=== PATIENT | male | born 1970 | race Caucasian/White ===

== ENCOUNTER 2019-02-02 22:50 | Emergency (ER) | payer BC ==
[2019-02-02] MEDS ORDERED: predniSONE 20 MG TAB PO STA (23:53)
--- NOTE | 2019-02-02 23:57 | ED ---
General Adult HPI - General Chief complaint: Neuro Symptoms/Deficit Stated complaint: Facial Numbness Time Seen by Provider: 02/02/19 23:04 Source: patient Mode of arrival: ambulatory Limitations: no limitations - History of Present Illness Initial comments: Patient is a 48-year-old man who presents to be evaluated for what he is concerned maybe strokelike symptoms. The patient states that starting yesterday in the evening he noticed that the right side of his face was feeling somewhat numb or heavy. He states that it also seemed like the right side of his mouth was somewhat drooping. He noticed that his eye was not closing as well. He states the symptoms were worse today and his girlfriend persuaded him to be seen here. Patient denies headache or any type of head injury. He denies any symptoms to the body. No trouble with speech or swallowing. Onset/Timin -: hour(s) Location: face Radiation: non-radiation Quality: dull Consistency: constant Improves with: none Worsens with: none Associated Symptoms: denies other symptoms Treatments Prior to Arrival: none - Related Data Previous Rx's Medication Instructions Recorded predniSONE 80 mg PO DAILY #7 tab 02/02/19 Allergies Allergy/AdvReac Type Severity Reaction Status Date / Time codeine Allergy Hallucinati Verified 02/02/19 23:28 ons Review of Systems ROS Statement: Those systems with pertinent positive or pertinent negative responses have been documented in the HPI. ROS Other: All systems not noted in ROS Statement are negative. Constitutional: Denies: fever, chills, weakness Eyes: Reports: other (Eyelid weakness). Denies: eye pain, eye discharge, vision change ENT: Denies: ear pain, throat pain, hearing loss Respiratory: Denies: cough, dyspnea Cardiovascular: Denies: chest pain, syncope Gastrointestinal: Denies: abdominal pain, nausea, vomiting Genitourinary: Denies: dysuria, hematuria Musculoskeletal: Denies: back pain Skin: Denies: rash Neurological: Reports: weakness (Right facial), numbness (Right facial). Denies: headache, paresthesias Past Medical History Past Medical History: No Reported History History of Any Multi-Drug Resistant Organisms: None Reported Past Surgical History: No Surgical Hx Reported Past Psychological History: No Psychological Hx Reported Smoking Status: Never smoker Past Alcohol Use History: Rare Past Drug Use History: Marijuana General Exam Limitations: no limitations General appearance: alert, in no apparent distress Head exam: Present: atraumatic, normocephalic Eye exam: Present: normal appearance, PERRL, EOMI, other. Absent: scleral icterus, conjunctival injection, periorbital swelling, periorbital tenderness ENT exam: Present: normal oropharynx, other (Right facial droop) Neck exam: Present: normal inspection, full ROM Respiratory exam: Present: normal lung sounds bilaterally. Absent: respiratory distress, wheezes, rales, rhonchi, stridor Cardiovascular Exam: Present: regular rate, normal rhythm, normal heart sounds. Absent: systolic murmur, diastolic murmur, rubs, gallop Extremities exam: Present: normal inspection, normal capillary refill. Absent: pedal edema, calf tenderness Neurological exam: Present: alert, oriented X3, motor sensory deficit. Absent: CN II-XII intact (Right facial droop. There is no sparing of the upper facial muscles on the right..) Skin exam: Present: warm, dry, intact, normal color. Absent: rash Course Vital Signs 02/02/19 22:53 Temperature 97.5 F L Pulse Rate 90 Respiratory 16 Rate Blood Pressure 135/96 O2 Sat by Pulse 98 Oximetry Disposition Clinical Impression: Hagen's palsy Disposition: HOME SELF-CARE Condition: Good Instructions (If sedation given, give patient instructions): Hagen Palsy (ED) Prescriptions: predniSONE 80 mg PO DAILY #7 tab Is patient prescribed a controlled substance at d/c from ED?: No Referrals: None,Stated [Primary Care Provider] - 1-2 days
[2019-02-03 01:12] VITALS: BP 131/84; PULSE 82; RESP 19; TEMP 97.9
== END 2019-02-03 01:12 | disposition home or self-care (01) ==
LOC: EC 22:50
DX: G51.0 Bell's palsy (principal); Z88.5 Allergy status to narcotic agent
CPT/HCPCS: 99283; J7512

== ENCOUNTER 2020-10-21 15:31 | Emergency (ER) | payer BC ==
[2020-10-21 15:38] VITALS: TEMP 97.9
--- NOTE | 2020-10-21 16:02 | ED ---
General Adult HPI - General Chief complaint: Recheck/Abnormal Lab/Rx Stated complaint: Medication reaction Time Seen by Provider: 10/21/20 15:41 Source: patient, RN notes reviewed, old records reviewed Mode of arrival: ambulatory Limitations: no limitations - History of Present Illness Initial comments: 50-year-old male presented for evaluation of increased anger, rage and outbursts. He has previous history of seasonal affective disorder and some depression. He states over the past several weeks he's been unable to control his temper and his had multiple purse both with coworkers and with his . He denies suicidal or homicidal thoughts but states that he could easily be pushed to aggression. He states that he was started on low-dose thyroid medication 25 g of levothyroxine. No antidepressants, no anti-anxiety medications. - Related Data Previous Rx's Medication Instructions Recorded predniSONE 80 mg PO DAILY #7 tab 02/02/19 Allergies Allergy/AdvReac Type Severity Reaction Status Date / Time codeine Allergy Hallucinati Verified 10/21/20 15:38 ons Review of Systems ROS Statement: Those systems with pertinent positive or pertinent negative responses have been documented in the HPI. ROS Other: All systems not noted in ROS Statement are negative. Past Medical History Past Medical History: Hyperlipidemia, Thyroid Disorder History of Any Multi-Drug Resistant Organisms: None Reported Past Surgical History: No Surgical Hx Reported Past Psychological History: Depression Smoking Status: Never smoker Past Alcohol Use History: Rare Past Drug Use History: Marijuana General Exam Limitations: no limitations General appearance: alert, in no apparent distress Head exam: Present: atraumatic, normocephalic Eye exam: Present: normal appearance, PERRL ENT exam: Present: normal exam Neck exam: Present: normal inspection. Absent: tenderness, meningismus Respiratory exam: Present: normal lung sounds bilaterally. Absent: respiratory distress, wheezes Cardiovascular Exam: Present: regular rate, normal rhythm GI/Abdominal exam: Present: soft. Absent: distended, tenderness Extremities exam: Present: normal inspection, normal capillary refill. Absent: pedal edema Neurological exam: Present: alert, oriented X3, CN II-XII intact. Absent: motor sensory deficit Psychiatric exam: Present: agitated. Absent: homicidal ideation, suicidal ideation Skin exam: Present: warm, dry, intact. Absent: cyanosis, diaphoretic Course Vital Signs 10/21/20 15:33 Temperature 97.9 F Pulse Rate 98 Respiratory 16 Rate Blood Pressure 152/91 O2 Sat by Pulse 97 Oximetry - Reevaluation(s) Reevaluation #1: 10/21/20 16:02 Cleared for EPS. Medical Decision Making - Medical Decision Making Patient has been called, cooperative EPS. Were able to evaluate the patient. [place] that the patient would benefit from outpatient psychiatric evaluation and treatment, counseling. Patient and his was at bedside agreeable with this plan. They will return to the emergency department with worsening or changing symptoms. There are given outpatient resources. - Lab Data Lab Results 10/21/20 Range/Units 15:57 Urine Opiates Screen Not Detected (NotDetected) Ur Oxycodone Screen Not Detected (NotDetected) Urine Methadone Screen Not Detected (NotDetected) Ur Propoxyphene Screen Not Detected (NotDetected) Ur Barbiturates Screen Not Detected (NotDetected) U Tricyclic Antidepress Not Detected (NotDetected) Ur Phencyclidine Scrn Not Detected (NotDetected) Ur Amphetamines Screen Not Detected (NotDetected) U Methamphetamines Scrn Not Detected (NotDetected) U Benzodiazepines Scrn Not Detected (NotDetected) Urine Cocaine Screen Not Detected (NotDetected) U Marijuana (THC) Screen Detected H (NotDetected) Disposition Clinical Impression: Depression Disposition: HOME SELF-CARE Condition: Fair Instructions (If sedation given, give patient instructions): Depression (ED) Additional Instructions: Please follow up with community mental health. Please return with worsening or changing symptoms Is patient prescribed a controlled substance at d/c from ED?: No Referrals: Mike Loredo MD [Primary Care Provider] - 1-2 days Time of Disposition: 18:08
[2020-10-21 16:26] LABS: Amphetamine Screen,Urine Not Detected (NotDetected); Barbiturate Screen,Urine Not Detected (NotDetected); Benzodiazepines Screen,Urine Not Detected (NotDetected); Cocaine Screen,Urine Not Detected (NotDetected); Methadone Screen, Urine Not Detected (NotDetected); Opiate Screen,Urine Not Detected (NotDetected); Oxycodone Screen, Urine Not Detected (NotDetected); Phencyclidine Screen,Urine Not Detected (NotDetected); Tricyclic Antidepressant,Urine Not Detected (NotDetected); Urn Cannabinoid Scrn Detected (NotDetected)
[2020-10-21] MEDS ORDERED: LORazepam 1 MG TAB PO STA (16:38)
[2020-10-21] MEDS ORDERED: haloperidoL 5 MG TAB PO ONE (16:51)
[2020-10-21 18:20] VITALS: BP 145/78; PULSE 79; RESP 20
== END 2020-10-21 18:20 | disposition home or self-care (01) ==
LOC: EC 15:31
DX: F32.9 Major depressive disorder, single episode, unspecified (principal); Z88.5 Allergy status to narcotic agent
CPT/HCPCS: 80306; 82075; 99284

== ENCOUNTER 2023-07-15 15:03 | Day surgery (SDC) | payer BC ==
[~2023-07-15 15:03] MED LIST: LACTATED RINGERS 1,000 ML IV SCH; LIDOCAINE 1% (10MG/ML) FOR IV START INTRADERMA PRN
[2023-07-15 15:38] VITALS: TEMP 96.1
[2023-07-15] MEDS ORDERED: PROPOFOL 10 MG/ML 20 ML VIAL IV ONE (16:50)
[2023-07-15] MEDS ORDERED: LIDOCAINE 1% INJ 10MG/ML (20 ML MDV) ONE (16:50)
--- NOTE | 2023-07-15 16:57 | P.GSHP ---
History of Present Illness H&P Date: 07/15/23 Chief Complaint: Screening colonoscopy Is a 53-year-old male who presents today for screening colonoscopy. Patient denies any significant complaints. Past Medical History Past Medical History: Hyperlipidemia, Thyroid Disorder History of Any Multi-Drug Resistant Organisms: None Reported Past Surgical History: No Surgical Hx Reported Past Anesthesia/Blood Transfusion Reactions: No Reported Reaction Additional Past Anesthesia/Blood Transfusion Reaction / Comment(s): never had anesthesia Smoking Status: Never smoker - Past Family History Mother Family Medical History: Diabetes Mellitus Father Family Medical History: Diabetes Mellitus Medications and Allergies Home Medications Medication Instructions Recorded Confirmed Type Levothyroxine Sodium 25 mcg PO DAILY 07/11/23 07/11/23 History Naproxen Sodium [Aleve] 220 mg PO DIRECTED PRN 07/11/23 07/11/23 History Venlafaxine HCl ER [Effexor Xr] 37.5 mg PO DAILY 07/11/23 07/11/23 History Allergies Allergy/AdvReac Type Severity Reaction Status Date / Time codeine Allergy Hallucinati Verified 07/15/23 15:24 ons Surgical - Exam Vital Signs Temp Pulse Resp BP Pulse Ox 96.1 F L 105 H 16 150/95 97 07/15/23 15:31 07/15/23 15:31 07/15/23 15:31 07/15/23 15:31 07/15/23 15:31 - General well developed, well nourished, no distress - Eyes PERRL - ENT normal pinna - Respiratory normal expansion - Cardiovascular Rhythm: regular - Abdomen Abdomen: soft, non tender Assessment and Plan Assessment: We will perform screening colonoscopy.
--- NOTE | 2023-07-15 17:04 | P.OP ---
Date of Procedure: 07/15/23 Preoperative Diagnosis: Screening colonoscopy Postoperative Diagnosis: Normal colonoscopy Procedure(s) Performed: Colonoscopy Anesthesia: MAC Surgeon: Lan Pringle Pathology: none sent Condition: stable Disposition: PACU Description of Procedure: PROCEDURE: The patient was placed on the endoscopy table in the lateral position. Digital rectal examination was performed which revealed no abnormalities. The prostate was symmetrical without nodules. Flexible colonoscope was then placed in the patient's anus and passed throughout the entire colon. The ileocecal valve was visualized. The cecum, ascending, transverse, descending and sigmoid colon were normal. The rectum was normal as well. There were no masses, polyps or diverticula noted in the entire colon. SUMMARY OF FINDINGS: Normal colonoscopy.
[2023-07-15 17:36] VITALS: BP 118/79; PULSE 89; RESP 18
== END 2023-07-15 17:37 | disposition home or self-care (01) ==
LOC: ORWHC2ENDO 15:03
PROVIDERS: ATTEND Surgery
DX: Z12.11 Encounter for screening for malignant neoplasm of colon (principal); E78.5 Hyperlipidemia, unspecified; E03.9 Hypothyroidism, unspecified; F32.A Depression, unspecified; F41.9 Anxiety disorder, unspecified; F12.90 Cannabis use, unspecified, uncomplicated; Z83.3 Family history of diabetes mellitus; Z79.890 Hormone replacement therapy; Z79.899 Other long term (current) drug therapy; Z88.5 Allergy status to narcotic agent
CPT/HCPCS: 45378; J2001; J2704

== ENCOUNTER → 2023-12-30 | Outpatient (CLI) | payer BC ==
--- NOTE | 2023-12-30 18:22 | XR ---
EXAMINATION TYPE: XR ankle complete RT DATE OF EXAM: 12/30/2023 5:14 PM CLINICAL INDICATION:Male, 53 years old with history of M25.57PAIN IN RIGHT ANKLE AND JOINTS OF RIGHT FOOT; [facility] COMPARISON: None TECHNIQUE: XR ankle complete RT; ankle is imaged in frontal, lateral and oblique projections. FINDINGS: There is no evidence of acute osseous pathology. The joint spaces are well-preserved without evidenc e of subluxation or dislocation. Kager's fat pad is intact. Mild soft tissue swelling around the ankl e. No radiopaque foreign bodies are identified. Calcaneal plantar spurring. Growth arrest line in the distal tibia. IMPRESSION: 1. No evidence of acute fracture. 2. Subcutaneous swelling around the ankle likely secondary to underlying soft tissue injury.
== END | disposition home or self-care (01) ==
LOC: RADXRMAIN 16:58
PROVIDERS: ATTEND Family Medicine
DX: M25.471 Effusion, right ankle (principal)